=== PATIENT | male | born 1945 | race Caucasian/White ===

== ENCOUNTER → 2019-03-29 13:07 | Outpatient (BNVA) | payer OTHER, SELFPAY | PROVIDERS: Family Provider Family Medicine; PCP Family Medicine; Referring Provider Licensed Practical Nurse; Visit Provider Psychiatry & Neurology Neurology | DX: M79.661 Pain in right lower leg (principal); M79.662 Pain in left lower leg; M54.16 Radiculopathy, lumbar region | CPT/HCPCS: 95886; 95909 ==

== ENCOUNTER 2019-06-01 09:28 | Outpatient (CLI) | payer OTHER, SELFPAY ==
--- NOTE | 2019-06-01 10:15 | MR_ITS ---
WS: [id number] MRI LUMBAR SPINE WITH AND WITHOUT CONTRAST HISTORY: Low back pain COMPARISON: 09/08/2018. TECHNIQUE: Sagittal and axial multisequence imaging is submitted. Sagittal and axial T1 fat sat seque nces post-ProHance 17 cc IV. Postoperative changes in the cervical spine. Mild cervical stenosis at C6-7 due to disc disease at os teophytes. Slight narrowing of the cervical cord. Cannot exclude myelomalacia as there is increased s ignal on the survey sequence. Mild LEFT convex curvature lumbar spine similar to the prior study. Postoperative laminectomy defects L2-3 and L3-4. Schmorl's node defect in the superior endplate of L3. Marrow edema along the inferior aspect of L2. There is also edema within the paravertebral soft tissues at the L2 level. Disc desiccation throughout the lumbar spine with disc space narrowing. Most significant at L2-3 and L3-4. Conus terminates normally at mid L1. T12-L1: Very small LEFT paracentral disc protrusion. No interval change since the prior study. L1-L2: Mild facet and ligamentum flavum arthritis. L2-L3: RIGHT hemilaminectomy defect. Diffuse annular disc bulging with facet and ligamentum flavum ar thropathy. Slightly greater degenerative changes on the RIGHT. Moderate RIGHT and mild LEFT foraminal stenosis. Similar to the prior study. L3-L4: Diffuse annular disc bulging and facet arthritis. Prior LEFT hemilaminectomy defect. There is at least moderate central and subarticular recess stenosis and RIGHT foraminal stenosis. Small centra l disc herniation with variable signal intensity is similar to the prior study. L4-L5: Annular disc bulging and facet arthritis. Ligamentum flavum and facet arthropathy. There is a very tiny central disc protrusion. Mild foraminal narrowing. L5-S1: No stenosis. Partial sacralization on the LEFT. No evidence for discitis. There is enhancement within the L2 and L3 adjacent endplates. Slightly prog ressed since the prior study. There is increasing marrow edema in L2 since the prior study. No enhanc ement across the intervening disc therefore this is probably reactive marrow edema and not osteomyeli tis. Postoperative enhancement within the gliosis and scar formation surrounding the thecal sac and i n the laminectomy defects from L2-3 through L4-5. Peripherally enhancing fluid collection just to the RIGHT of the L4 spinous process measures 15 x 7 mm. This was present on the prior study with mild in crease in size. MR/MR lumbar spine wo/w con [id number] IMPRESSION: 1. Postoperative laminectomy defects on the LEFT at L2-3 and L4-5 with enhance ment and scar formation at the postoperative bed. 2. No evidence for discitis. 3. Increasing marrow edema within L2 and L3 with enhancement. With no enhancem ent in the intervening disc this is probably reactive marrow edema. There is ad jacent enhancement within the RIGHT paravertebral soft tissue. Infection is not excluded. 4. Small peripherally enhancing fluid collection just to the RIGHT of L4 measu res 15 x 7 mm. Mild increase in size since the prior study. May be a benign pos toperative collection. With slight increase in size consider postoperative absc ess cavity. 5. Moderate RIGHT and mild LEFT foraminal stenosis at L2-3. 6. Moderate central, subarticular recess and RIGHT foraminal stenosis at L3-4 is similar to the prior study. 7. Small LEFT paracentral disc protrusion at T12-L1 is unchanged. 8. Mild bilateral foraminal narrowing at L4-5.
[2019-06-01 10:44] LABS: Blood Urea Nitrogen 13 mg/dL (8-23)
--- NOTE | 2019-06-01 11:00 | XR_ITS ---
WS: [id number] LATERAL LUMBAR SPINE: 3 view. Lateral radiographs are performed in upright neutral, flexion and extension to the patient's toleranc e. HISTORY: Low back pain COMPARISON: 09/08/2018 Slight increase in lumbar lordosis. Mild facet joint narrowing with osteophytes and facet arthritis. Mild ectasia thoracic aorta. L2: 3 mm retrolisthesis on neutral increases to 4.7 mm during extension. L3: Normal alignment on neutral. 3.5 mm anterolisthesis on flexion and 2.6 mm retrolisthesis on exten sia. XR/XR lumbar spine f/e only [id number] IMPRESSION: Mild flexion and extension instability of L2 and L3, new since 09/08/2018.
== END 2019-06-01 09:29 | disposition home or self-care (01) ==
LOC: RADWPI 09:33
PROVIDERS: Family Provider Family Medicine; PCP Family Medicine; Visit Provider Licensed Practical Nurse
DX: M53.2X6 Spinal instabilities, lumbar region (principal); R60.9 Edema, unspecified; M48.061 Spinal stenosis, lumbar region without neurogenic claudication; M51.25 Other intervertebral disc displacement, thoracolumbar region
CPT/HCPCS: 72120; 72158; 82565; 84520; A9579